=== PATIENT | female | born 1955 | race Caucasian/White ===

== ENCOUNTER 2017-08-13 08:11 | Emergency (ER) | payer OTHER ==
[~2017-08-13] VITALS: Ht 154.9 cm; Wt 60.0 kg
[~2017-08-13 08:11] MED LIST: NAPROSYN500 MG PO; PERCOCET 5/31 TABLET PO; SYNTHROID75 MCG PO; VALIUM5 MG PO
[2017-08-13] MEDS ORDERED: NORCO 5/3251 TABLET PO (09:56)
== END 2017-08-13 10:54 | disposition home or self-care (01) ==
LOC: EME 08:11
PROC: 2W38X1Z Immobilization of Right Upper Extremity using Splint (ICD-10-PCS; principal; 2017-08-13)
DX: S52.501A Unspecified fracture of the lower end of right radius, initial encounter for closed fracture (principal); S00.33XA Contusion of nose, initial encounter; W00.0XXA Fall on same level due to ice and snow, initial encounter
CPT/HCPCS: 73110; 99281; 99284